=== PATIENT | female | born 1985 | race Caucasian/White ===

== ENCOUNTER 2019-04-04 10:54 | Emergency (ER) | payer BC, OTHER ==
[~2019-04-04] VITALS: Ht 165.1 cm; Wt 62.8 kg
[2019-04-04 12:01] VITALS: BP 106/85
--- NOTE | 2019-04-04 12:01 | NUR ---
PT RESTING IN [place] ON MONITOR WITH AT BEDSIDE. CALL LIGHT WITHIN REACH. NAD, NO NEEDS AT THIS TIME. AWAITING LAB RESULTS
[2019-04-04 12:19] LABS: BASOPHILS # (AUTO) 0.03 x10^3/uL (0-0.1); BASOPHILS % (AUTO) 1 % (0-1); EOSINOPHILS # (AUTO) 0.03 x10^3/uL (0-0.4); EOSINOPHILS % (AUTO) 1 % (1-7); LYMPHOCYTES # (AUTO) 1.83 x10^3/uL (1-3.4); LYMPHOCYTES % (AUTO) 40 % (22-44); MD NO; MEAN CORPUSCULAR HEMOGLOBIN 32.4 pg (27.0-34.8); MEAN CORPUSCULAR HGB CONC 33.5 g/dL (32.4-35.8); MEAN CORPUSCULAR VOLUME 96.8 fL (80-100); MEAN PLATELET VOLUME 7.2 fL (7.4-10.4); MONOCYTES # (AUTO) 0.22 x10^3/uL (0.2-0.8); MONOCYTES % (AUTO) 5 % (2-9); NEUTROPHILS # (AUTO) 2.52 x10^3/uL (1.8-6.8); NEUTROPHILS % (AUTO) 55 % (42-75); PLATELET COUNT 312 x10^3/uL (130-400); RED BLOOD COUNT 3.93 x10^6/uL (3.82-5.3); RED CELL DISTRIBUTION WIDTH 12.8 % (9.6-15.2)
[2019-04-04 12:31] LABS: ANION GAP 5 mmol/L (5-15); CALCIUM 8.6 mg/dL (8.5-10.1); CHLORIDE 108 mmol/L (98-107); CREATININE 0.66 mg/dL (0.55-1.02)
[2019-04-04 12:36] LABS: ALANINE AMINOTRANSFERASE 37 U/L (12-78); ALKALINE PHOSPHATASE 55 U/L (45-117); BILIRUBIN,TOTAL 0.3 mg/dL (0.2-1.0); TOTAL PROTEIN 7.4 g/dL (6.4-8.2)
== END 2019-04-04 13:35 | disposition home or self-care (01) ==
LOC: ED 13:30
DX: F41.1 Generalized anxiety disorder (principal); R00.2 Palpitations
CPT/HCPCS: 36415; 80053; 84703; 85025; 93005; 99284

== ENCOUNTER 2020-03-09 14:08 | Emergency (ER) | payer OTHER ==
[~2020-03-09] VITALS: Ht 165.1 cm; Wt 61.3 kg
--- NOTE | 2020-03-09 15:46 | NUR ---
Pt to room from [facility], ambulatory with steady gait.
--- NOTE | 2020-03-09 16:03 | NUR ---
THIS IS A 34 YO FEMALE WHO PRESENTS TO THE ER C/O GENERAL MALAISE AND LEFT BREAST REDNESS/TENDERNESS NOTED THIS AM. PT REPORTS HER YOUNGEST CHILD IS 5 YEARS OLD. PT AO X 4. SKIN PWD. RESP EVEN AND UNLABORED. PT STEADY UPON AMBULATION TO RESTROOM AND BACK TO [facility]. REPORT TO PRIMARY RN MADIHA WHO ASSUMED CARE OF PT.
[2020-03-09] MEDS ORDERED: HYDROmorphone 1 MG/ML, 1ML INJ IVPush PRN (17:00)
[2020-03-09] MEDS ORDERED: CEFTRIAXONE PMX 1GM/50ML 50 ML IVPB ONE (17:00)
[2020-03-09] MEDS ORDERED: SODIUM CHLORIDE FLUSH 10ML SYR IVF ONE (17:00)
[2020-03-09] MEDS ORDERED: SODIUM CHLORIDE 0.9% 1,000ML IVBOLUS ONE (17:00)
[2020-03-09] MEDS ORDERED: ONDANSETRON 2MG/ML, 2ML IVPush ONE (17:00)
[2020-03-09] MEDS ORDERED: CEFTRIAXONE PMX 1GM/50ML 50 ML ONE (17:02)
[2020-03-09] MEDS ORDERED: HYDROmorphone 1 MG/ML, 1ML INJ ONE (17:09)
[2020-03-09] MEDS ORDERED: ONDANSETRON 2MG/ML, 2ML ONE (17:09)
[2020-03-09 17:17] LABS: BASOPHILS # (AUTO) 0.04 x10^3/uL (0-0.1); BASOPHILS % (AUTO) 0 % (0-1); EOSINOPHILS # (AUTO) 0.03 x10^3/uL (0-0.4); EOSINOPHILS % (AUTO) 0 % (1-7); LYMPHOCYTES % (AUTO) 10 % (22-44); MD NO; MEAN CORPUSCULAR HEMOGLOBIN 31.2 pg (27.0-34.8); MEAN CORPUSCULAR HGB CONC 33.6 g/dL (32.4-35.8); MEAN CORPUSCULAR VOLUME 92.7 fL (80-100); MEAN PLATELET VOLUME 7.6 fL (7.4-10.4); MONOCYTES # (AUTO) 0.33 x10^3/uL (0.2-0.8); MONOCYTES % (AUTO) 3 % (2-9); NEUTROPHILS # (AUTO) 9.21 x10^3/uL (1.8-6.8); NEUTROPHILS % (AUTO) 86 % (42-75); PLATELET COUNT 257 x10^3/uL (130-400); RED BLOOD COUNT 4.37 x10^6/uL (3.82-5.3); RED CELL DISTRIBUTION WIDTH 12.1 % (9.6-15.2)
[2020-03-09 17:26] LABS: ALANINE AMINOTRANSFERASE 17 U/L (12-78); ALBUMIN 4.1 g/dL (3.4-5.0); ANION GAP 4 mmol/L (5-15); CALCIUM 8.6 mg/dL (8.5-10.1); CHLORIDE 105 mmol/L (98-107); CREATININE 0.76 mg/dL (0.55-1.02)
[2020-03-09 17:29] LABS: ALKALINE PHOSPHATASE 39 U/L (45-117); TOTAL PROTEIN 7.8 g/dL (6.4-8.2)
--- NOTE | 2020-03-09 17:40 | NUR ---
Ultrasound at bedside
[2020-03-09 18:23] VITALS: BP 100/64
--- NOTE | 2020-03-09 18:38 | NUR ---
[facility] AT BEDSIDE FOR EVALUATION
--- NOTE | 2020-03-09 18:48 | NUR ---
REPORT TO ANITA PATINO
== END 2020-03-09 19:06 | disposition home or self-care (01) ==
LOC: ED 16:14 → EDIP 18:14 → UNDOADMIN 18:14 → ED 19:06
DX: N61.0 Mastitis without abscess (principal); N64.4 Mastodynia; M79.10 Myalgia, unspecified site; R42 Dizziness and giddiness; R11.0 Nausea; R50.9 Fever, unspecified
CPT/HCPCS: 10035; 36415; 80053; 83605; 85025; 87040; 96365; 96375; 99284; J0696; J1170; J2405; J7030; 96361